=== PATIENT | female | born 1985 | race African-American/Black ===

== ENCOUNTER 2025-03-26 12:04 | Emergency (ER) | payer OTHER, SELFPAY ==
--- NOTE | ~2025-03-26 | CT_ITS ---
History: Headache PROCEDURE: CT head without contrast. COMPARISON: None TECHNIQUE: Axial imaging of the head performed from the skull base to the vertex without IV contrast. Sagittal a nd coronal reformations obtained. DLP: 681 mGy-cm FINDINGS: The ventricles are normal in size, shape and position. There is no mass, mass effect or midline shift. There is no abnormal extra-axial fluid collection or intracranial hemorrhage. Visualized paranasal sinuses are clear. The mastoid air cells are well aerated. No acute displaced fractures within the overlying cranium. Impression: No acute intracranial hemorrhage or suspicious mass effect. Reviewed, dictated and finalized at location A. Impression: No acute intracranial hemorrhage or suspicious mass effect.
[2025-03-26 12:07] VITALS: BP 151/96; PULSE 100; RESP 16; TEMP 36.6; O2SAT 100
[2025-03-26 15:10] VITALS: BP 155/100; PULSE 98; RESP 16; TEMP 37.2; O2SAT 99
--- NOTE | 2025-03-26 15:22 | ECG_ITS ---
Test Date: 2025-03-26 15:25:21 Measurements Intervals Powell Rate: 91 P: 0 VT: 131 QRS: -19 QRSD: 101 T: -15 QT: 320 QTc: 394 Interpretive Statements SINUS RHYTHM MODERATE VOLTAGE CRITERIA FOR LVH, CONSIDER NORMAL VARIANT [MEETS CRITERIA IN ONE OF: R(aVL), S(V1), R(V5), R(V5/V6)+S(V1)] NONSPECIFIC T-WAVE ABNORMALITY ABNORMAL ECG No previous ECG available for comparison Electronically Signed On 03-26-2025 16:47:31 CDT by Benigno Calderon M.D.
--- NOTE | 2025-03-26 15:23 | ED.HA ---
HPI - Headache General Chief Complaint: Headache <Danni Escobedo REFRIGERATOR CABINETMAKER - Last Filed: 03/26/25 15:42> Stated Complaint: headache x 24 hours <Danni Escobedo REFRIGERATOR CABINETMAKER - Last Filed: 03/26/25 15:42> Time Seen by Provider: 03/26/25 15:15 <Danni Escobedo REFRIGERATOR CABINETMAKER - Last Filed: 03/26/25 15:42> Focused HPI: Patient is a 39-year-old female who presents to the ER with a headache for the past 24 hours. She reports she is to have migraine headaches as a child but has not had one since she was 19 years old. Patient reports she has a history of thyroidectomy and has not taken her thyroid medication for the past 2 days because she has been nauseated and can not keep anything down. She also endorses chest pain, dry throat, chills, and sharp pain on her side. Patient also endorses history blood pressure. She denies any one-sided numbness/tingling/weakness, swollen lower extremities, or recent fevers. GENERAL: Well-appearing, well-nourished, and in no acute distress. HEAD: Normocephalic, atraumatic. CHEST: Clear to auscultation. ?No respiratory distress. HEART: Regular rate and rhythm.? NEURO: ?Alert and oriented x3. Patient screened in triage and initial orders placed.? ?Additional care and disposition to be based upon?diagnostic testing and treatment. <Danni Escobedo APRN - Last Filed: 03/26/25 15:42> Focused HPI: Patient is a 39-year-old female who presents to the ER with a headache for the past 24 hours. She reports she is to have migraine headaches as a child but has not had one since she was 19 years old. Patient reports she has a history of thyroidectomy and has not taken her thyroid medication for the past 2 days because she has been nauseated and can not keep anything down. Patient also endorses history blood pressure. She denies any one-sided numbness/tingling/weakness, swollen lower extremities, or recent fevers. GENERAL: Well-appearing, well-nourished, and in no acute distress. HEAD: Normocephalic, atraumatic. CHEST: Clear to auscultation. ?No respiratory distress. HEART: Regular rate and rhythm.? NEURO: ?Alert and oriented x3. Patient screened in triage and initial orders placed.? ?Additional care and disposition to be based upon?diagnostic testing and treatment. <Mandi West PA-C - Last Filed: 03/26/25 20:47> History of Present Illness HPI Narrative: Agree with the above triage note. Patient states her headache is throughout her entire head associated with photophobia, phonophobia and nausea. Denies vomiting, fevers, head injury or trauma, vision changes, focal numbness or weakness. States she stubbed migraines when she was younger and would take naproxen with improvement. She has been taking ibuprofen at home without improvement. <Mandi West PA-C - Last Filed: 03/26/25 20:47> Related Data Allergies/Adverse Reactions: Allergies Allergy/AdvReac Type Severity Reaction Status Date / Time No Known Allergies Allergy Verified 03/26/25 12:07 <Danni Escobedo APRN - Last Filed: 03/26/25 15:42> Review of Systems Review of Systems: All systems reviewed & are unremarkable except as noted in HPI and below <Mandi West PA-C - Last Filed: 03/26/25 20:47> Exam Narrative: GENERAL: Well-appearing, well-nourished, and in no acute distress. HEAD: Normocephalic, atraumatic. EYES: PERRLA and EOMI. ENT: Nares clear, no rhinorrhea or epistaxis. Mucous membranes moist. NECK: Supple. No nuchal rigidity CHEST: Clear to auscultation. No respiratory distress. HEART: Regular rate and rhythm. No murmur heard. Normal peripheral pulses. ABDOMEN: Soft, nontender, nondistended, normal active bowel sounds. No CVA tenderness EXTREMITIES: Normal range of motion. No edema. SKIN: Warm, dry, no rash. NEURO: No focal deficits. Alert and oriented x4. Cranial nerves 2-12 intact. Strength 5/5 in BUE and BLE. Sensation intact throughout. Normal [id number]. Normal heel to mejia <LINDA Chong Last Filed: 03/26/25 20:47> Course Vital Signs Vital signs: Vital Signs Temperature 98 F 03/26/25 12:07 Pulse Rate 100 03/26/25 12:07 Respiratory Rate 16 03/26/25 12:07 Blood Pressure 151/96 H 03/26/25 12:07 Pulse Oximetry 100 03/26/25 12:07 Temperature 98.9 F 03/26/25 15:10 Pulse Rate 98 03/26/25 15:10 Respiratory Rate 16 03/26/25 15:10 Blood Pressure 155/100 H 03/26/25 15:10 Pulse Oximetry 99 03/26/25 15:10 <Danni Escobedo, REFRIGERATOR CABINETMAKER - Last Filed: 03/26/25 15:42> Vital Signs Temperature 98 F 03/26/25 12:07 Pulse Rate 100 03/26/25 12:07 Respiratory Rate 16 03/26/25 12:07 Blood Pressure 151/96 H 03/26/25 12:07 Pulse Oximetry 100 03/26/25 12:07 Temperature 98.9 F 03/26/25 15:10 Pulse Rate 98 03/26/25 15:10 Respiratory Rate 16 03/26/25 15:10 Blood Pressure 155/100 H 03/26/25 15:10 Pulse Oximetry 99 03/26/25 15:10 <Mnadi West PA-C - Last Filed: 03/26/25 20:47> MDM - Headache MDM Narrative Medical decision making narrative: 39-year-old female with reported history of migraines presents to emergency department for headache for the past 24 hours. See HPI for further history. Triage vitals with elevated blood pressure 151/96, otherwise unremarkable. Patient is afebrile and nontoxic appearing. She is neurovascularly intact without focal deficits. Lab work obtained in triage shows no leukocytosis. Chemistries are largely unremarkable. TSH is mildly low at 0.336 however free T4 is normal at 0.9. Urinalysis shows 4+ ketonuria, patient does appear dry on exam was given fluids. UA does show 6-10 white blood cells and 3-5 RBCs, she denies signs or symptoms of UTI. CT brain shows no acute intracranial hemorrhage or suspicious mass effect. Patient was given IV fluids, Reglan, Benadryl, Toradol and Decadron with some improvement, however headache still persists. Will trial another L of fluids, Tylenol and magnesium and re-evaluate. Patient re-evaluated after fluids, Tylenol magnesium and reports significant improvement. She is tolerating p.o. intake. Will send her home on naproxen, Tylenol and Zofran. Advised follow-up with PCP and discussed strict ED return precautions. She is agreeable with the plan verbalized understanding. Discharged in stable condition. <Mandi West PA-C - Last Filed: 03/26/25 20:47> Lab Data Result diagrams: 03/26/25 15:28 03/26/25 15:28 <Danni Escobedo APRN - Last Filed: 03/26/25 15:42> Labs: Lab Results 03/26/25 03/26/25 Range/Units 15:28 16:37 WBC 9.1 (4.5-10.0) K/mm3 RBC 4.33 (4.2-5.4) M/mm3 Hgb 12.4 (12.0-15.0) g/dL Hct 38.5 (37.0-47.0) % MCV 88.9 (80-100) fl MCH 28.6 (26-34) pg MCHC 32.2 (32-36) g/dl RDW 11.7 (11.5-14.5) % Plt Count 304 (150-375) k/mm3 MPV 9.2 (7.4-10.4) fl Immature Gran % (Auto) 0.3 (0-0.5) % Neut % (Auto) 69.7 (45.5-73.1) % Lymph % (Auto) 21.3 (18.3-44.2) % [place] % (Auto) 8.3 (2.6-8.5) % Eos % (Auto) 0.2 (0-4.4) % Baso % (Auto) 0.2 (0.2-1.2) % Lymph # (Auto) 1.93 (0.9-3.2) K/mm3 [place] # (Auto) 0.8 H (0.1-0.6) K/mm3 Eos # (Auto) 0.0 (0-0.3) K/mm3 Baso # (Auto) 0.0 (0.0-0.1) K/mm3 Abs Immat Gran (auto) 0.03 (0.00-0.031) K/mm3 Absolute Neuts (auto) 6.3 (1.3-6.7) K/mm3 Absolute Nucleated RBC 0.000 (0.0-0.012) K/mm3 Nucleated RBC % 0.0 (0.0-0.2) % Sodium 136 L (137-145) mmol/L Potassium 3.6 (3.4-5.0) mmol/L Chloride 100 (98-107) mmol/L Carbon Dioxide 24 (22-30) mmol/L Anion Gap 12 (4-12) mmol/L BUN 15 (7-17) mg/dL Creatinine 0.97 (0.7-1.0) mg/dL Estim Creat Clear Calc Not Reportable Estimated GFR > 60 (59 - ) Glucose 100 (65-110) mg/dL Calcium 9.5 (8.4-10.2) mg/dL Total Bilirubin 1.4 H (0.2-1.3) mg/dL AST 24 (14-36) U/L ALT 15 (6-35) U/L Alkaline Phosphatase 119 (38-126) U/L Total Protein 9.1 H (6.3-8.2) g/dL Albumin 4.3 (3.5-5.1) g/dL TSH (Reflex) 0.336 L (0.465-4.68) uIU/mL Free T4 0.90 (0.78-2.19) ng/dL Total T3 0.69 L (0.82-1.58) NG/ML Urine Color Dark yellow (Yellow) Urine Appearance Cloudy H (Clear) Urine pH 6.0 (5.0-9.0) Ur Specific [place] 1.034 (1.001-1.035) Urine Protein 1+ H (Negative) mg/dL Urine Glucose (UA) Negative (Negative) mg/dL Urine Ketones 4+ H (Negative) mg/dL Ur Blood (Man) Negative (Negative) Urine Nitrate Negative (Negative) Urine Bilirubin 1+ H (Negative) Urine Urobilinogen 1.0 (<2.0) mg/dL Leukocyte Esterase Rfl Negative (Negative) WALT/UL Urine RBC 3-5 H (0-2) /hpf Urine WBC 6-10 H (0-3) /hpf Ur Squamous Epith Cells Moderate (Few) /hpf Urine Bacteria 3+ H /hpf Urine Casts 0-2 <Danni Escobedo, REFRIGERATOR CABINETMAKER - Last Filed: 03/26/25 15:42> Lab Results 03/26/25 03/26/25 Range/Units 15:28 16:37 WBC 9.1 (4.5-10.0) K/mm3 RBC 4.33 (4.2-5.4) M/mm3 Hgb 12.4 (12.0-15.0) g/dL Hct 38.5 (37.0-47.0) % MCV 88.9 (80-100) fl MCH 28.6 (26-34) pg MCHC 32.2 (32-36) g/dl RDW 11.7 (11.5-14.5) % Plt Count 304 (150-375) k/mm3 MPV 9.2 (7.4-10.4) fl Immature Gran % (Auto) 0.3 (0-0.5) % Neut % (Auto) 69.7 (45.5-73.1) % Lymph % (Auto) 21.3 (18.3-44.2) % [place] % (Auto) 8.3 (2.6-8.5) % Eos % (Auto) 0.2 (0-4.4) % Baso % (Auto) 0.2 (0.2-1.2) % Lymph # (Auto) 1.93 (0.9-3.2) K/mm3 [place] # (Auto) 0.8 H (0.1-0.6) K/mm3 Eos # (Auto) 0.0 (0-0.3) K/mm3 Baso # (Auto) 0.0 (0.0-0.1) K/mm3 Abs Immat Gran (auto) 0.03 (0.00-0.031) K/mm3 Absolute Neuts (auto) 6.3 (1.3-6.7) K/mm3 Absolute Nucleated RBC 0.000 (0.0-0.012) K/mm3 Nucleated RBC % 0.0 (0.0-0.2) % Sodium 136 L (137-145) mmol/L Potassium 3.6 (3.4-5.0) mmol/L Chloride 100 (98-107) mmol/L Carbon Dioxide 24 (22-30) mmol/L Anion Gap 12 (4-12) mmol/L BUN 15 (7-17) mg/dL Creatinine 0.97 (0.7-1.0) mg/dL Estim Creat Clear Calc Not Reportable Estimated GFR > 60 (59 - ) Glucose 100 (65-110) mg/dL Calcium 9.5 (8.4-10.2) mg/dL Total Bilirubin 1.4 H (0.2-1.3) mg/dL AST 24 (14-36) U/L ALT 15 (6-35) U/L Alkaline Phosphatase 119 (38-126) U/L Total Protein 9.1 H (6.3-8.2) g/dL Albumin 4.3 (3.5-5.1) g/dL TSH (Reflex) 0.336 L (0.465-4.68) uIU/mL Free T4 0.90 (0.78-2.19) ng/dL Total T3 0.69 L (0.82-1.58) NG/ML Urine Color Dark yellow (Yellow) Urine Appearance Cloudy H (Clear) Urine pH 6.0 (5.0-9.0) Ur Specific [place] 1.034 (1.001-1.035) Urine Protein 1+ H (Negative) mg/dL Urine Glucose (UA) Negative (Negative) mg/dL Urine Ketones 4+ H (Negative) mg/dL Ur Blood (Man) Negative (Negative) Urine Nitrate Negative (Negative) Urine Bilirubin 1+ H (Negative) Urine Urobilinogen 1.0 (<2.0) mg/dL Leukocyte Esterase Rfl Negative (Negative) WALT/UL Urine RBC 3-5 H (0-2) /hpf Urine WBC 6-10 H (0-3) /hpf Ur Squamous Epith Cells Moderate (Few) /hpf Urine Bacteria 3+ H /hpf Urine Casts 0-2 <Mandi West PA-C - Last Filed: 03/26/25 20:47> Discharge Plan Discharge Clinical Impression: Headache Qualifiers: Headache type: unspecified Headache chronicity pattern: acute headache Intractability: intractable Qualified Code(s): R51.9 - Headache, unspecified <Danni Escobedo APRN - Last Filed: 03/26/25 15:42> Patient Disposition: Home <Danni Escobedo APRN - Last Filed: 03/26/25 15:42> Condition: Stable <Danni Escobedo APRN - Last Filed: 03/26/25 15:42> Instructions: Antibiotic Form, Acute Headache (ED) <Danni Escobedo APRN - Last Filed: 03/26/25 15:42> Additional Instructions: Please make sure to drink plenty of fluids including water, Gatorade and Pedialyte. Take acetaminophen and naproxen as needed for headache. Follow-up closely with her primary care provider. Return to the emergency department if you develop fever, vision changes, focal numbness or weakness, significantly worsening headache or other concerning symptoms. <Danni Escobedo APRN - Last Filed: 03/26/25 15:42> Patient Language: French <Danni Escobedo APRN - Last Filed: 03/26/25 15:42> Prescriptions: New naproxen 500 mg tablet 500 mg PO BID PRN (Reason: pain) Qty: 20 0RF acetaminophen 500 mg capsule 500 mg PO Q6H PRN (Reason: pain) Qty: 14 0RF ondansetron 4 mg tablet,disintegrating 4 mg PO Q8H Qty: 14 0RF <Danni Escobedo APRN - Last Filed: 03/26/25 15:42> Follow-up/Referrals: PHYSICIAN NOT ON STAFF,NONSTAFF [Primary Care Provider] - <Danni Escobedo APRN - Last Filed: 03/26/25 15:42> Stand Alone Forms: Work/School Release IP <Danni Escobedo APRN - Last Filed: 03/26/25 15:42>
[2025-03-26 15:34] LABS: Hematocrit 38.5 % (37.0-47.0); Hemoglobin 12.4 g/dL (12.0-15.0); Immature Granulocyte Percent A 0.3 % (0-0.5); Lymphocytes Absolute Auto 1.93 K/mm3 (0.9-3.2); Mean Corpuscular HGB Conc 32.2 g/dl (32-36); Mean Corpuscular Hemoglobin 28.6 pg (26-34); Mean Corpuscular Volume 88.9 fl (80-100); Nucleated Red Blood Cells Absolute Auto 0.000 K/mm3 (0.0-0.012); Nucleated Red Blood Cells Perc 0.0 % (0.0-0.2); Platelet Count Result 304 k/mm3 (150-375); Red Blood Count 4.33 M/mm3 (4.2-5.4); White Blood Count 9.1 K/mm3 (4.5-10.0)
[2025-03-26 16:00] LABS: Alanine Aminotransferase 15 U/L (6-35); Albumin Level 4.3 g/dL (3.5-5.1); Alkaline Phosphatase 119 U/L (38-126); Anion Gap 12 mmol/L (4-12); Aspartate Amino Transferase 24 U/L (14-36); Bilirubin,Total 1.4 mg/dL (0.2-1.3); Blood Urea Nitrogen 15 mg/dL (7-17); Calcium 9.5 mg/dL (8.4-10.2); Carbon Dioxide 24 mmol/L (22-30); Chloride 100 mmol/L (98-107); Estimated Glomerular Filt Rate > 60; Glucose 100 mg/dL (65-110); Potassium 3.6 mmol/L (3.4-5.0); Sodium 136 mmol/L (137-145); Total Protein 9.1 g/dL (6.3-8.2)
[2025-03-26 16:30] LABS: Thyroid Stimulating Hormone Reflex 0.336 uIU/mL (0.465-4.68)
[2025-03-26] MEDS: SODIUM CHLORIDE 0.9% IV 1,000 ML 999 ML IV CONT ×2 (16:34→18:07)
[2025-03-26] MEDS: dexAMETHasone SOD PHOS INJ 10 MG/ML 1 ML VIAL IV PUSH (16:35)
[2025-03-26] MEDS: METOCLOPRAMIDE HCL INJ 10 MG/2 ML VIAL IV PUSH (16:35)
[2025-03-26 16:47] LABS: Add Urine Microscopic? YES; Appearance Urine Cloudy (Clear); Glucose Urine UA Negative (Negative); Leukocyte Esterase Ur Negative LEU/UL (Negative); Nitrate Urine Negative (Negative); Non Pathogenic Casts 0-2; Specific Grav Ur 1.034 (1.001-1.035)
[2025-03-26] MEDS: KETOROLAC 30 MG/ML VIAL (*BKC) IV PUSH (17:21)
[2025-03-26 17:24] LABS: Free T4 Free Thyroxine Reflex 0.90 ng/dL (0.78-2.19)
--- OUTSIDE RECORDS SUMMARY | 2025-03-26 18:03 | XMS_ITS | Clinical Summary ---
Author Organization [address] Address [address] [place] [id number] Care Team Providers Care Bin Packer Name Role Phone Donna Wang DO Primary Care Provider [phone] Allergies No known active allergies Medications albuterol HFA (PROVENTIL HFA,VENTOLIN HFA,PROAIR HFA) 90 mcg/actuation inhaler Inhale 2 puffs every 4 (four) hours as needed 3 Active Symbicort 160-4.5 mcg/actuation inhaler Inhale 2 puffs 2 (two) times a day 5 Active cholecalciferol (VITAMIN D-3) 5,000 unit capsule Take 1 capsule (5,000 Units total) by mouth daily 4 Active irbesartan-hydr ochlorothiazide (AVALIDE) 150-12.5 mg per tablet Take 1 tablet by mouth daily 5 Active levonorgestreL (MIRENA) IUD 1 each by intrauterine route once 3 Active Active Problems No known active problems Medical History Medical History Date Comments Asthma Hypertension Family History Medical History Relation Name Comments Kidney cancer Mother Relation Name Status Comments Mother Social History Tobacco Use Types Packs/Day Years Used Date Smoking Tobacco: Former Cigarettes Smokeless Tobacco: Never Tobacco Cessation:Counseling Given: Not Answered Comments No Sex and Gender Information Value Date Recorded Sex Assigned at Not on file Legal Sex Female 11:56 AM CDT Gender Identity Not on file Sexual Orientation Not on file Obstetrics History Para Term AB IAB SAB Ectopic Multiple Livin g Live Births 3 0 0 Date Outcome GA Total Labor Labor/2nd/3rd Weight Sex Type Anes PTL Anupama A1 A5 Name Clin Last Filed Vital Signs Vital Sign Reading Time Taken Comments Blood Pressure 122/84 12/19/2024 10:28 AM CDT Pulse - - Temperature - - Respiratory Rate - - Oxygen Saturation - - Inhaled Oxygen Concentration - - Weight 94.9 kg (209 lb 3.2 oz) 12/19/2024 10:28 AM CDT Height 165.1 cm (5' 5) 12/19/2024 10:28 AM CDT Body Mass Index 34.81 12/19/2024 10:28 AM CDT Plan of Treatment Health Maintenance Due Date Last Done Comments Depression Screening 1985 Varicella Vaccines (1 of 2 - 13+ 2-dose series) 1998 Pneumococcal vaccine <65 (1 of 2 - PCV) 2004 Covid-19 Vaccine (2023-2 5 season) 2024 06/04/2021, 05/14/2021 Influenza Vaccine (Season Ended) 2025 05/26/2022, 07/09/2021, 07/06/2021 Cervical Cancer Screening 12/19/20252024, 12/19/2024 Regular Well Visit/Exam 18-64 12/19/2025 12/19/2024 DTaP/Tdap/Td Vaccine (2 - Td or Tdap) 07/06/2031 07/06/2021 Hepatitis B Screening Completed 11/01/1999 , 06/11/1999, 04/08/1999 Hepatitis C Screening Completed 12/19/2024 HPV Vaccines Aged Out No longer eligi ble based on patient's age to complete this topic Procedures Procedure Name Priority Date/Time Associated Diagnosis Comments HIGH RISK HPV DNA DETECTION WITH GENOTYPING Routine 12/19/2024 12:00 PM CDT Well woman exam HEPATITIS C ANTIBODY Routine 12/19/2024 11:15 AM CDT Screening examination for STD (sexually transmitted disease) from Last 3 Months or Most Recently Relevant to Health Maintenance Results * High Risk HPV DNA Detection with Genotyping (Molecular component) (12/19/2024 12:00 PM CDT) HPV HR 16 Not Detected Not Detected HPV HR 18 Not Detected Not Detected [facility] HPV HR Non 16/18 Not Detected Not Detected [facility] Comment: Interpretive Data Nucleic acid amplification for detection of high-risk Human Papilloma virus (HPV) is performed by the [place] Man 4800 HPV test, which specifically detects high-risk HPV-16, 18, 31, 33, 35, 39, 45, 51, 52, 56, 58, 59, 66, and 68 genotypes. This assay has been approved by the [place] Food and Drug Administration for detection of HPV in cervical specimens collected by a physician using an endocervical brush/spatula or cervical broom and placed in the ThinPrep Pap Test PreservCyt collection containers. The performance characteristics of this test have been verified by the [facility]. Correlate with separately reported cytology results, as applicable. Interpretive data last revised 23 Endocervical 12/19/2024 12:0 0 PM CDT 12/19/2024 6:09 PM CDT Narrative [facility] - 12/20/2024 5:13 PM CDT Clinical history and diagnosis->ASCUS +HPV 2023 Number of vials->1 Testing type->Screening Last menstrual period (date if known)->none Elmira Siu NP LAB BODY FLUIDS AND STOOLS ORDER BRONWYN Final Result [facility] [address] Department [place] [address] * Hepatitis C antibody Blood (12/19/2024 11:15 AM CDT) Hep C Ab Nonreactive Nonreactive Comment: Interpretive Data Nonreactive: Antibodies to HCV not detected. Does NOT exclude the possibility of recent exposure to HCV. Equivocal: Equivocal for HCV antibodies. Supplemental molecular testing will be automatically performed to determine infection status in accordance with current CDC screening recommendations. Reactive: Positive for HCV antibodies. This may represent current or past HCV infection. Supplemental molecular testing will be automatically performed to determine current infection status in accordance with current CDC screening recommendations. Interpretive data was last revised on 2019. Blood 12/19/2024 11:1 5 AM CDT 12/19/2024 4:13 PM CDT us Elmira Siu NP LAB MICROBIOLOGY - GENERAL ORDER BRONWYN Final Result [facility] [address] Department [place] [address] from Last 3 Months or Most Recently Relevant to Health Maintenance Insurance [facility] H[facility]/PPO Address: [facility] [address] [facility] [address] [address] [place] [address] Care Teams Bin Packer Relationship Specialty Start Date End Date Donna Wang DO [address] [place] [address] PCP - General Family Medicine 12/19/24
--- OUTSIDE RECORDS SUMMARY | 2025-03-26 18:03 | XMS_ITS | Referral Summary ---
Author Organization [address] Address [address] [place] [id number] Care Team Providers Care Dry Can Tender Name Role Phone Donna Wang DO Primary Care Provider [phone] Allergies No known active allergies Medications albuterol [...] Active Active Problems No known active problems Social History Tobacco Use Types Packs/Day Years Used Date Smoking Tobacco: Former Cigarettes Smokeless Tobacco: Never Tobacco Cessation:Counseling Given: Not Answered Comments No Sex and Gender Information Value Date Recorded Sex Assigned at Not on file Legal Sex Female 11:56 AM CDT Gender Identity Not on file Sexual Orientation Not on file Last Filed Vital Signs Vital Sign Reading [...] 12/19/2024 10:28 AM CDT Plan of Treatment Not on file Procedures Procedure Name Priority Date/Time Associated Diagnosis [...] HPV HR 18 Not Detected Not Detected [facility] HPV HR Non 16/18 Not Detected Not Detected [facility] Comment: Interpretive Data Nucleic acid amplification for [...] this test have been verified by the [facility]. Correlate with separately reported cytology results, as applicable. Interpretive data last revised 23 Endocervical 12/19/2024 12:0 0 PM CDT 12/19/2024 6:09 PM CDT Narrative [facility] - 12/20/2024 5:13 PM CDT Clinical history and diagnosis->ASCUS +HPV 2023 Number of vials->1 Testing type->Screening Last menstrual period (date if known)->none Elmira Siu NP LAB BODY FLUIDS AND STOOLS ORDER BRONWYN Final Result Performing Organization Address [facility] Co de Phone Number [facility] [address] Department [place] [address] * Hepatitis C antibody Blood (12/19/2024 11:15 [...] 5 AM CDT 12/19/2024 4:13 PM CDT Elmira Siu INSTRUCTIONAL MANAGER LAB MICROBIOLOGY - GENERAL ORDER BRONWYN Final Result Performing Organization Address [facility] Co de Phone Number [facility] [address] Department [place] [address] from Last 3 Months or Most Recently Relevant to Health Maintenance Insurance [facility] Care Teams Dry Can Tender Relationship Specialty Start Date End Date Donna Wang DO [address] [place] [address] PCP - General Family Medicine 12/19/24
--- OUTSIDE RECORDS SUMMARY | 2025-03-26 18:03 | XMS_ITS | Clinical Summary ---
Author Organization [facility] Address [address] [place] [address] Care Team Providers Care Plan Manager Name Role Phone Donna Wang Primary Care Provider [phone] Source Comments [facility],non-owned Affiliates and Associated Physician Practices is amultiple site organization consisting of ambulatory clinics and hospital sitesin [place], [place], [place] and [place]. This disclosure is being madepursuant to the Care Everywhere program and may not contain all information available regarding this patient. Last updated 18.[facility] Allergies No known active allergies Medications * Be aware that medications may not be up to date on this document. Alwaysverify current medications with the patient. loratadine (CLARITIN) 10 MG tablet Take 1 (one) tablet by mouth once daily Active albuterol HFA (ProAir HFA) 108 (90 Base) MCG/ACT inhaler Inhale 2 (two) puffs by mouth every 4 hours as needed for Shortness of Breath 8.5 g 10/11/19 23 Active OtherIndications :Sleep disturbance Apply 1 device to affected area once daily oura ring 1 Each 1 09/07/19 24 Active vitamin D (Cholecaciferol) 125 MCG (5000 UT) capsuleIndicatio ns:Vitamin D deficiency Take 1 (one) capsule by mouth once daily 90 capsule 3 06/06/20 24 Active amoxicillin-clav ulanate (Augmentin) 875-125 MG tablet Take 1 (one) tablet by mouth every 12 hours 10/27/19 25 Active Symbicort 160-4.5 MCG/ACT inhaler Inhale 2 (two) puffs by mouth 2 times daily 10/27/19 25 Active guaiFENesin-code ine (Robitussin AC) 100-10 MG/5ML syrupIndications :Persistent cough for 3 weeks or longer Take 5 mL by mouth every 6 hours as needed for Cough 240 mL 10/29/19 25 Active irbesartan-hydro CHLOROthiazide (Avalide) 150-12.5 MG tabletIndication s:Essential hypertension Take 1 (one) tablet by mouth once daily 90 tablet 3 10/29/19 25 Active levothyroxine (Synthroid) 100 MCG tablet Take 1 (one) tablet by mouth daily before breakfast 30 tablet 2 01/08/20 25 Active acetaminophen (Tylenol) 325 MG tablet Take 2 (two) tablets by mouth every 6 hours as needed for Fever or Pain Maximum allowable Acetaminophen amount = 4 Grams (4000 mg) / 24 hours. 01/08/20 25 Active ibuprofen (Motrin) 800 MG tablet Take 1 (one) tablet by mouth every 6 hours as needed for Pain 30 tablet 01/08/20 25 Active oxyCODONE, immediate release, (Roxicodone) 5 MG tabletIndication s:Thyroid goiter Take 1 (one) tablet by mouth every 6 hours as needed for Pain 20 tablet 01/08/20 25 Active Additional Information Patient not taking.Reported on 02/12/2025 Active Problems Problem Noted Date Diagnosed Date Thyroid goiter 01/06/2025 White coat syndrome with hypertension 10/26/2021 Chronic pain of both knees 02/26/201802/02 Tinea cruris 02/26/2018 02/02/2023 Obesity (BMI 30.0-34.9) 03/02/2017 02/03/20 23 Asthma Hypertension Encounters Date Type Department Care Team Description 02/12/2025 3:00 PM CDT Office Visit [facility] [address] [place] [phone] Niels Guevara MD Postoperative hypothyroidism (Primary Dx) 01/30/2025 Refill [facility] [address] [place] [phone] Mik Christopher MD Refill Request 01/06/2025 7:30 AM CDT Anesthesia Event [facility] [address] [place] [address] Sandro Sood MD Singh, Jaganjot, DO 01/06/2025 7:05 AM CDT - 01/06/2025 11:20 AM CDT Surgery [facility] [address] [place] [address] Niels Guevara MD Total thyroidectomy 01/06/2025 5:22 AM CDT - 01/07/2025 10:55 AM CDT Hospital Encounter [facility] [address] [place] [address] Niels Guevara MD Surgery General Discharge Disposition: Home or Self Care 01/06/2025 Travel from Last 3 Months Immunizations Immunization Administration Dates Next Due [employer] primary monoval ent 12+ yr 0.3mL Purple cap 06/04/2021,05/14/2021 HEP B VACCINE, PED/ADOL 11/01/1999,06/11/1999, INFLUENZA VACCINE 05/26/2022,07/09/2021 INFLUENZA VACCINE, QUADR. (F LUZONE; FLULAVAL; FLUARIX; AFLURIA QUADRIVALENT; 6MO+), 0.5 ML (IIV4) 07/06/2021 TDAP (7yrs+) 07/06/2021 Family History Medical History Relation Name Comments Cancer - Other Mother kidney CA Gout Mother Hypertension Mother Relation Name Status Comments Father Alive Mother Alive Social History Tobacco Use Types Packs/Day Years Used Date Smoking Tobacco: Some Days Cigarettes 0.1 2 Started: 12/2016; Last attempted to quit: 12/2018 Smokeless Tobacco: Never Tobacco Cessation:Ready to Q uit: Not Asked; Counseling Given: Not Answered Comments:Pack of cigarettes per month Alcohol Use Standard Drinks/Week Comments Yes 0 (1 standard drink = 0.6 oz pur e alcohol) rare AUDIT-C Answer Date Recorded Q1: How often do you have a drink containing alc ohol? 2-4 times a month 01/06/2025 Q2: How many drinks containi ng alcohol do you have on a typical day when you are drinking? 1 or 2 01/06/2025 Q3: How often do you have si x or more drinks on one occasion? 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 Not on file Not on file Last Filed Vital Signs Vital Sign Reading Time Taken Comments Blood Pressure 131/88 02/12/2025 2:49 PM CDT Pulse 96 02/12/2025 2:49 PM CDT Temperature 36.7 C (98.1 F) 01/07/2025 8:19 AM CDT Respiratory Rate 18 01/06/2025 10:22 PM CDT Oxygen Saturation 97% 01/07/2025 8:19 AM CDT Inhaled Oxygen Concentration - - Weight 97.5 kg (215 lb) 02/12/2025 2:49 PM CDT Height 165.1 cm (5' 5) 02/12/2025 2:49 PM CDT Body Mass Index 35.78 02/12/2025 2:49 PM CDT Plan of Treatment Health Maintenance Due Date Last Done Comments HPV VACCINE (1 - 3-dose SCDM series) 2012 PAP with HPV 07/27/2023 07/27/2018 COVID-19 VACCINE ( season) 2024 06/04/2021, 05/14/2021 INFLUENZA VACCINE (#1) 2025 2, 07/09/2021, 07/06/2021 DTAP/TDAP/TD VACCINES (2 - Td or Tdap) 07/06/2031 07/06/2021 ZOSTER VACCINE (1 of 2) 2035 HEPATITIS B VACCINE Completed 11/01/1999, 06/11/1999, 04/08/1999 DEPRESSION SCREENING Completed 10/29/2024, 06/04/2024, 02/02/2023, Additional history exists HEPATITIS C SCREENING Discontinued 12/19/2024 HIB VACCINE Aged Out No longer eligi ble based on patient's age to complete this topic HIV SCREENING Discontinued MENINGOCOCCAL (Group B) VACCINE SHARED DECISION-MAKING Aged Out No longer eligible based on patient's age to complete this topic MENINGOCOCCAL GROUPS A/C/Y/W VACCINE Aged Out No longer eligible based on patient's age to complete this topic PNEUMOCOCCAL VACCINE Discontinued Procedures Procedure Name Priority Date/Time Associated Diagnosis Comments TSH Routine 03/10/2025 12:00 AM CDT T4 FREE Routine 03/10/2025 12:00 AM CDT BASIC METABOLIC PANEL (CALCIUM TOTAL) AM Draw 01/07/2025 2:23 AM CDT Thyroid goiter MAGNESIUM BLOOD Routine 01/06/2025 1:24 PM CDT Thyroid goiter CALCIUM BLOOD Routine 01/06/2025 10:51 AM CDT Thyroid goiter PTH POST-OP OR ONLY STAT 01/06/2025 1 0:15 AM CDT Thyroid goiter PATHOLOGY TISSUE Routine 01/06/2025 9:25 AM CDT Thyroid goiter ENDOTRACHEAL TUBE NOTE Routine 01/06/2025 8:24 AM CDT NH THYROIDECTOMY 01/06/2025 7:05 AM CDT Thyroid goiter Special Needs RLNM - NIMS 01/01 BC TYPE + SCREEN PANEL STAT 01/06/2025 6 :03 AM CDT Tinea cruris HCG URINE QUALITATIVE - POCT (IP) INTERFACED Routine 01/06/2025 5:52 AM CDT HCG URINE QUAL POCT NOTIFICATION STAT 01/06/2025 5:49 AM CDT Tinea cruris SCAN ONLY HIS HUMAN PAPILLOMA VIRUS Routine 07/27/2018 from Last 3 Months or Most Recently Relevant to Health Maintenance Results * TSH (03/10/2025 12:00 AM CDT) TSH 0.656 0.450 - 4.500 uIU/mL [facility] ACCOUNT BILL 03/10/2025 03/10/2025 Narrative [facility] ACCOUNT BILL - 03/11/2025 4:11 PM CDT Performed at: [address] [place] [id number] Crozer Operator: Aden Hope PhD, Phone: [phone] us Niels Guevara MD LAB - CHEMISTRY ORDERABLES Fi nal Result Performing Organization Address [facility] Co de Phone Number [facility] ACCOUNT BILL [address] [place] [address] * T4 FREE (03/10/2025 12:00 AM CDT) T4 Free 0.98 0.82 - 1.77 ng/dL [facility] ACCOUNT BILL 03/10/2025 03/10/2025 Narrative [facility] ACCOUNT BILL - 03/11/2025 4:11 PM CDT Performed at: [address] [place] [id number] Crozer Operator: Aden Hope PhD, Phone: [phone] us Niels Guevara MD LAB - CHEMISTRY ORDERABLES Fi nal Result Performing Organization Address City/[facility] Co de Phone Number [facility] ACCOUNT BILL [address] [place] [address] * (ABNORMAL) BASIC METABOLIC PANEL (CALCIUM TOTAL) (01/07/2025 2:23 AM CDT) BUN 9 7 - 26 mg/dL 01/07/2025 3:07 AM CDT [facility] Creatinine 0.81 0.56 - 0.96 mg/dL 01/07/2025 3:07 AM CDT [facility] Sodium 139 136 - 145 mmol/L 01/07/2025 3:07 AM CDT [facility] Potassium 3.7 3.5 - 4.5 mmol/L 01/07/2025 3:07 AM [facility] Chloride 107 98 - 107 mmol/L 01/07/2025 3:07 AM [facility] CO2 21(L) 22 - 29 mmol/L 01/07/2025 3:07 AM [facility] Glucose 104(H) 70 - 99 mg/dL 01/07/2025 3:07 AM [facility] Calcium 8.5 8.4 - 10.2 mg/dL 01/07/2025 3:07 AM [facility] Anion Gap 11 6 - 16 01/07/2025 3:07 AM [facility] BUN/Creatinine Ratio 11 7 - 23 01/07/2025 3:07 AM [facility] Osmolality Calculated 287 275 - 295 mOsm/kg 01/07/2025 3:07 AM [facility] eGFR by CKD-EPI >90 >=90 mL/min/1.7 3 m2 01/07/2025 3:07 AM [facility] Blood BLOOD SPECIMEN / Unknown Lab Venipuncture / Unknown 01/07/2025 2:23 AM CDT 01/07/2025 2:41 AM CDT us Niels Guevara MD LAB - CHEMISTRY ORDERABLES Fi nal Result Performing Organization Address [facility] Co de Phone Number [facility] [address] [place] [address], [facility] [phone] * MAGNESIUM BLOOD (01/06/2025 1:24 PM CDT) Magnesium 1.6 1.6 - 2.6 mg/dL 01/06/2025 1:55 PM [facility] Comment:Hemolysis detected i n this specimen. Hemolysis is known to cause elevations in this analyte. Caution should be exercised in the interpretation of this result. Recommend repeat testing if clinically indicated. Blood BLOOD SPECIMEN / Unknown Lab Venipuncture / Unknown 01/06/2025 1:24 PM CDT 01/06/2025 1:38 PM CDT us Niels Guevara MD LAB - CHEMISTRY ORDERABLES Fi nal Result [address] [address], [facility] [phone] * (ABNORMAL) CALCIUM BLOOD (01/06/2025 10:51 AM CDT) Calcium 7.7(L) 8.4 - 10.2 mg/dL 01/06/2025 12:04 PM CDT [facility] Blood BLOOD SPECIMEN / Unknown Venipuncture / Unknown 01/06/2025 10:51 AM CDT 01/06/2025 11:11 AM CDT Niels Guevara MD LAB - CHEMISTRY ORDERABLES nal Result Performing Organization Address [facility] Co de Phone Number [address] [address], [facility] [phone] * PTH POST-OP OR ONLY (01/06/2025 10:15 AM CDT) PTH Post-Operative 35.1 See Comment pg/mL 01/06/2025 11:00 AM CDT [facility] Comment:A decrease in cirula ting PTH of 50% or more, ten minutes post-resection, signals successful removal of the abnormally secreting parathyroid tissue. Blood BLOOD SPECIMEN / Unknown Venipuncture / Unknown 01/06/2025 10:15 AM CDT 01/06/2025 10:26 AM CDT us Niels Guevara MD LAB - CHEMISTRY ORDERABLES nal Result Performing Organization Address [facility] Co de Phone Number [address] [address], [facility] [phone] * PATHOLOGY TISSUE (01/06/2025 9:25 AM CDT) Case Report Surgical Pathology Report Case: [id number] Authorizing Provider: Niels Guevara MD Collected: 01/06/2025 09:25 AM Ordering Location: [facility] Received: 01/06/2025 10:54 AM Pathologist: Cody Lei MD Specimens: A) - Thyroid, Left Lobe, stitch superior B) - Thyroid, Right Lobe, stitch superior 01/07/2025 9:51 AM [facility] Final Diagnosis A. Left lobe of thyroid and portion of isthmus, hemithyroidectomy: Multiple benign adenomatous nodules (benign multinodular goiter). B. Right lobe of thyroid and portion of isthmus, hemithyroidectomy: Multiple benign adenomatous nodules (benign multinodular goiter). 01/07/2025 9:51 AM [facility] at 0951 CDT Microscopic Description and Comment Microscopic examination is performed and supports the final diagnosis. There is no evidence of malignancy. 01/07/2025 9:51 AM [facility] Clinical History Substernal goiter, difficulty breathing 01/07/2025 9:51 AM [facility] Gross Description A. The requisition and specimen(s) are identified with the patient's name Tammie Munguia. Received in formalin, labeled specimen A, is a resection specimen consisting of left lobe of thyroid (11 x 5 x 5 cm) with attached isthmus (3.5 x 2.2 x 2.1 cm) weighing 132 g. A suture velez the superior aspect of the specimen. The outer surface is inked as follows: blue-anterior, black- posterior, green - isthmus margin. Serial sections show multiple cysts, many filled with yellow-brown watery fluid. The cysts range in size from 1.7-8.8 cm in greatest dimension and have foci of calcification. The uninvolved parenchyma is red-brown. Extrusion Line Operator sections are submitted in cassettes A1-A9. B. Received in formalin, labeled specimen B, is a right thyroid lobectomy specimen (5.6 x 3.5 x 1.5 cm) with attached piece of isthmus. (2.8 x 2.1 x 1.1 cm) weighing 18 g. A stitch designates the superior aspect of the specimen. The outer surface of the specimen is inked as follows: Blue-anterior, black-posterior and green- isthmus margin. Serial sections show multiple colloid cysts ranging up to 2.0 cm in greatest dimension. Extrusion Line Operator sections are submitted in cassettes B1-B4. /GALA 01/07/2025 9:51 AM CDT [facility] Pathologist Location at [facility] 01/07/2025 9:51 AM CDT [facility] Disclaimer The performance characteristics of all immunohistochemical and indirect immunofluorescence stains (if any) cited in this report were determined by the Histopathology Laboratory of [facility]. Some of these tests were developed by our own laboratory and have not been cleared or approved by the US Food and Drug Administration. The FDA does not require this test to go through premarket FDA review. These tests are used for clinical purposes. They should not be regarded as investigational or for research. This laboratory is certified under the Clinical Laboratory Improvement Amendments (CLIA) as qualified to perform high complexity clinical laboratory testing. This case has been personally reviewed and interpreted by the attending (teaching) pathologist. 01/07/2025 9:51 AM CDT [facility] Embedded Images 01/07/2025 9:51 AM CDT [facility] Resection without Tumor (Thyroid, Left Lobe) 01/06/2025 9:25 AM CDT 01/06/2025 10:54 AM CDT Comment:Pre-op diagnosis: Thyroid goiter Resection without Tumor (Thyroid, Right Lobe) 01/06/2025 9:26 AM CDT 01/06/2025 10:54 AM CDT Comment:Pre-op diagnosis: Thyroid goiter Niels Guevara MD LAB - PATHOLOGY/CYTOLOGY BECCA MAYEN Final Result Performing Organization Address [facility] Phone Number [facility] [address] [phone] * ETT LINE PERFORMABLE (01/06/2025 8:24 AM CDT) Narrative Luz Elean Matthews APRN-CRNA - 01/06/2025 8:24 AM CDT Luz Elena Matthews APRN-CRNA 01/06/2025 8:25 AM Endotracheal Tube Placement: Patient Location: OR. Intubation Event Date/Time: 01/06/2025 7:46 AM Procedure: intubation (35193) Procedure Section: Sedation: under general anesthesia. Indications for Airway Management: anesthesia Induction: standard IV Patient Position: sniffing and supine (Shoulder roll) Mask Ventilation: not attempted. Blade Type: Video Blade Size: 3 Laryngoscopy View: grade 1 (full cords) Intubation Adjuncts: stylet Tube: TRACEY tube Placement: oral Tube type: cuff - inflated Tube Size (MM): 7 Depth of Insertion (CM): 21 Measured From: teeth Cuff Inflated With: air Number of Attempts: 1. Placement Verified By: direct visualization, chest auscultation, CO2 detector, CO2 monitor and bilateral breath sounds CXR Findings: ETT in proper place. Tube secured with: adhesive tape. Dentition unchanged? Yes Difficult Airway? No. Procedure Start Time: 01/06/2025 7:46 AM. Staff Section Anesthesia Provider: Luz Elena Matthews, CREAM RIPENER-SEXUAL ASSAULT NURSE, Performed the procedure Provider #1: Sandro Sood MD. Additional Comments: Atraumatic intubation no change in dentition or soft tissue of aw after dl.. Sandro Sood MD GENERAL ANESTHESIA ORDERABLES Final Result * TYPE + SCREEN PANEL (01/06/2025 6:03 AM CDT) Pathologist [facility] Antibody Screen NEG 7:48 AM CDT [facility] ABO Rh O POS 01/06/2025 7:48 AM CDT [facility] Blood Bank BLOOD SPECIMEN / Unknown Venipuncture / Unknown 01/06/2025 6:03 AM CDT 01/06/2025 6:49 AM CDT Urbano Garcia MD LAB - BLOOD BANK ORDERABLES Fin al Result [facility] [address] [place] [address], [facility] [phone] * HCG URINE QUALITATIVE - POCT (IP) INTERFACED (01/06/2025 5:52 AM CDT) HCG Qual Urine Negative Negative 01/06/2025 5:59 AM CDT [facility] Urine URINE / Unknown 01/06/2025 5 :52 AM CDT 01/06/2025 5:59 AM CDT us Niels Guevara MD LAB - POINT OF CARE ORDERABLE S Final Result Performing Organization Address City/[facility]/ZIP Co de Phone Number [address] [address], [place] [phone] * HCG URINE QUAL POCT NOTIFICATION (01/06/2025 5:49 AM CDT) Comment Notification Label Only - See Separate Report 01/06/2025 7:00 AM CDT [facility] Urine URINE / Unknown 01/06/2025 5 :49 AM CDT 01/06/2025 5:50 AM CDT us Urbano Garcia MD LAB - URINALYSIS ORDERABLES Fin al Result Performing Organization Address [facility]/ZIP Co de Phone Number [address] [address], [place] [phone] * SCAN ONLY HIS HUMAN PAPILLOMA VIRUS (07/27/2018) us Provider Unknown SCANNING ONLY Final Result from Last 3 Months or Most Recently Relevant to Health Maintenance Advance Directives * Full Code (Latest Code Status on File) Date Activated Date Inactivated Comments 01/06/2025 12:05 PM 01/07/2025 11:56 AM Care Teams Plan Manager Relationship Specialty Start Date End Date Donna Wang DO [address] [place] [id number] PCP - General Family Medicine 02/02/23
--- OUTSIDE RECORDS SUMMARY | 2025-03-26 18:03 | XMS_ITS | Encounter Summary ---
Author Organization [facility] Address [address] [place] [address] Care Team Providers Care Galley Worker Name Role Phone Unavailable Primary Care Provider Unavailabl e Prior Encounters Date Type Department Care Team Description 10/14/2021 8:30 AM [facility] Office Visit [facility] [address] [place] [address] Gautam Murphy DDS 09/23/2019 Converted CPS Chart Documents [facility] [address] [place] [address] <No scans attached> 09/23/2019 Converted 13x Documents [facility] [address] [place] [address] <No scans attached> Last Filed Vital Signs Vital Sign Reading Time Taken Comments Blood Pressure 127/84 10/14/2021 8:26 AM [facility] Pulse 84 10/14/2021 8:26 AM [facility] Temperature - - Respiratory Rate - - Oxygen Saturation - - Inhaled Oxygen Concentration - - Weight - - Height - - Body Mass Index - - Plan of Treatment Not on file Procedures Procedure Name Priority Date/Time Associated Diagnosis Comments PANORAMIC RADIOGRAPHIC IMAGE Routine 10/14/2021 8:30 AM [facility] BITEWING - SINGLE RADIOGRAPHIC IMAGE Routine 10/14/2021 8:30 AM [facility] ADDITIONAL X-RAY Routine 10/14/2021 8:30 AM [facility] SINGLE X-RAY Routine 10/14/2021 8:30 AM [facility] LIMITED ORAL EVALUATION - PROBLEM FOCUSED Routine 10/14/2021 8:30 AM [facility] 4 REMOVAL OF RESIDUAL TOOTH ROOTS (CUTTING PROCEDURE) Routine 11/07/2019 2:00 AM [facility] OS CONSULT Routine 11/07/2019 2:00 AM [facility] 4 LIMITED ORAL EVALUATION - PROBLEM FOCUSED Routine 07/30/2019 2:00 AM [facility] SINGLE X-RAY Routine 07/30/2019 2:00 AM [facility] 32 O AMALGAM 1 SURFACE Routine 9 2:00 AM CDT 31 O AMALGAM 1 SURFACE Routine 9 2:00 AM CDT 18 O AMALGAM 1 SURFACE Routine 9 2:00 AM CDT 4 ENDODONTIC THERAPY, PREMOLAR TOOTH (EXCLUDING FINAL JEHOVAH'S WITNESS) Routine 02/12/2019 2:00 AM CDT COMPREHENSIVE ORAL EVALUATION - NEW OR ESTABLISHED PATIENT Routine 02/12/2019 2:00 AM CDT PANORAMIC RADIOGRAPHIC IMAGE Routine 02/12/2019 2:00 AM CDT INTRAORAL - COMPREHENSIVE SERIES OF RADIOGRAPHIC IMAGES Routine 02/12/2019 2:00 AM CDT INTRAORAL PHOTO Routine 02/12/2019 2:00 AM CDT INTRAORAL PHOTO Routine 02/12/2019 2:00 AM CDT INTRAORAL PHOTO Routine 02/12/2019 2:00 AM CDT INTRAORAL PHOTO Routine 02/12/2019 2:00 AM CDT Visit Diagnoses Not on file Insurance [facility] [address] PPO
--- OUTSIDE RECORDS SUMMARY | 2025-03-26 18:03 | XMS_ITS | Clinical Summary ---
Author Organization [facility] Health Address [address] [facility] lydia ButcherRafaJARAD [address] Care Team Providers Care Tug Hand Name Role Phone Unavailable Primary Care Provider Unavailabl e Allergies No known active allergies Medications hydroCHLOROthiaz eliot (HYDRODIURIL) 25 mg tablet Take 1 tablet by mouth 1 (one) time each day. 09/30/2021 Active hydroCHLOROthiaz eliot (HYDRODIURIL) 25 mg tablet Take 25 mg by mouth 1 (one) time each day. 09/30/2021 Active Active Problems Problem Noted Date Diagnosed Date Asthma 10/14/2021 Chronic pain of both knees 02/26/2018 Tinea cruris 02/26/2018 Essential hypertension 03/02/2017 Obesity (BMI 30.0-34.9) 03/02/2017 Refused influenza vaccine 03/02/2017 Immunizations Immunization Administration Dates Next Due COVID-19, mRNA, LNP-S, PF, 30 mcg/0.3 mL dose Tdap 07/06/2021 Social History Tobacco Use Types Packs/Day Years Used Date Smoking Tobacco: Never Assessed Comments No Sex and Gender Information Value Date Recorded Sex Assigned at Not on file Legal Sex Female 12:15 AM PST Gender Identity Not on file Sexual Orientation Not on file Last Filed Vital Signs Vital Sign Reading Time Taken Comments 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 Pulse 84 10/14/2021 8:26 AM [facility] Temperature - - Respiratory Rate - - Oxygen Saturation - - Inhaled Oxygen Concentration - - Weight - - Height - - Body Mass Index - - Plan of Treatment Health Maintenance Due Date Last Done Comments Dental Prophylaxis 1985 Dental Oral Exam 08/15/2019 02/12/2019 Dental X-Ray: Bitewings 08/15/2019 02/12/2019 Dental X-Ray: Full Mouth 04/18/2023 04/17/2020, 02/02 Dental X-Ray: Panoramic 10/15/2024 10/14/2021, 02/12 Procedures Procedure Name Priority Date/Time Associated Diagnosis Comments PANORAMIC RADIOGRAPHIC IMAGE Routine 10/14/2021 8:30 AM [facility] INTRAORAL - COMPREHENSIVE SERIES OF RADIOGRAPHIC IMAGES Routine 02/12/2019 2:00 AM CDT COMPREHENSIVE ORAL EVALUATION - NEW OR ESTABLISHED PATIENT Routine 02/12/2019 2:00 AM CDT from Last 3 Months or Most Recently Relevant to Health Maintenance [place] [address] [place] [address] DENTAL [facility] [place] PPO
--- OUTSIDE RECORDS SUMMARY | 2025-03-26 18:03 | XMS_ITS | Clinical Summary ---
Author Organization [facility] Address [address] [place] [address] Care Team Providers Care Break Off Worker Name Role Phone Unavailable Primary Care Provider Unavailabl e Allergies No known active allergies Medications ketoconazole (NIZORAL) 2 % CreamIndications: Tinea cruris Apply a small amount to affected area daily x 10 days. 60 Gram 8 Active hydroCHLOROthiazi de 25 mg tabletIndications :Essential hypertension Take 1 Tablet (25 mg) by mouth daily. 30 Tablet 2 9 Active Active Problems Problem Noted Date Diagnosed Date Tinea cruris 02/26/2018 Chronic pain of both knees 02/26/2018 Essential hypertension 03/02/2017 Obesity (BMI 30.0-34.9) 03/02/2017 Refused influenza vaccine 03/02/2017 Resolved Problems Problem Noted Date Diagnosed Date Resolved Date Tinea versicolor 03/02/2017 02/26/2018 Family History Medical History Relation Name Comments Diabetes Brother Hypertension Mother Kidney Disease Mother Relation Name Status Comments Brother Mother Social History Tobacco Use Types Packs/Day Years Used Date Smoking Tobacco: Never Smokeless Tobacco: Never Alcohol Use Standard Drinks/Week Comments Yes 0 (1 standard drink = 0.6 oz pur e alcohol) Comments No Sex and Gender Information Value Date Recorded Sex Assigned at Not on file Legal Sex Female 12:10 PM CDT Gender Identity Not on file Sexual Orientation Not on file Last Filed Vital Signs Vital Sign Reading Time Taken Comments Blood Pressure 140/100 02/26/2018 3:04 PM CDT Pulse 91 02/26/2018 3:04 PM CDT Temperature 36.9 C (98.4 F) 02/26/2018 3:04 PM CDT Respiratory Rate 16 02/26/2018 3:04 PM CDT Oxygen Saturation 97% 02/26/2018 3:04 PM CDT Inhaled Oxygen Concentration - - Weight 91.2 kg (201 lb) 02/26/2018 3:04 PM CDT Height 162.6 cm (5' 4) 02/26/2018 3:04 PM CDT Body Mass Index 34.5 02/26/2018 3:04 PM CDT Plan of Treatment Health Maintenance Due Date Last Done Comments HPV VACCINES (1 - 3-dose series) 2000 DTAP/TDAP/TD VACCINES (1 - Tdap) 2004 HEPATITIS B VACCINES (1 of 3 - 19+ 3-dose series) 2004 HPV/Cotest (21-29) 2006 HPV/Cotest (30-65) 2015 CERVICAL CANCER SCREENING 07/20/2020 PAP SMEAR 07/20/2020 07/20/2017 INFLUENZA VACCINE (#1) 2025 03/02/2017, 2016 Procedures Procedure Name Priority Date/Time Associated Diagnosis Comments PAP IG, CT-NG TV, HPV RFX 16 18,45 Routine 07/20/2017 from Last 3 Months or Most Recently Relevant to Health Maintenance Results * PAP IG, CT-NG TV, HPV RFX 16 18,45 (07/20/2017) Genital SWAB OF ENDOCERVIX / Unknown us Abstract Provider PATH/CYTO ORDERABLES COM Edite d Result - Final [facility]# [id number] [address] from Last 3 Months or Most Recently Relevant to Health Maintenance
[2025-03-26] MEDS: ACETAMINOPHEN 500 MG TABLET 1000 MG PO (18:06)
[2025-03-26] MEDS: MAGNESIUM SULF 2 GM/WATER 50ML 2 GM/50 ML BAG IVPB (18:07)
[2025-03-26 18:32] LABS: Total Triiodothyronine (T3) 0.69 NG/ML (0.82-1.58)
== END 2025-03-26 20:20 | disposition home or self-care (01) ==
PROVIDERS: Registered Nurse; Emergency Provider Physician Assistant
DX: R51.9 Headache, unspecified (principal); E89.0 Postprocedural hypothyroidism
CPT/HCPCS: 36415; 70450; 80053; 81001; 84439; 84443; 84480; 85025; 93005; 96361; 96365; 96375; 99284; A9270; J1100; J1200; J1885; J2765; J3475; J7030